=== PATIENT | female | born 1960 | race Caucasian/White ===

== ENCOUNTER → 2023-09-26 10:27 | Outpatient (REF) | payer MEDICARE, SELFPAY | LOC: WDC 10:27 | PROVIDERS: ATTENDING PHYSICIAN Obstetrics & Gynecology | DX: Z12.31 Encounter for screening mammogram for malignant neoplasm of breast (principal) | CPT/HCPCS: 77063; 77067 ==

== ENCOUNTER → 2024-10-01 08:45 | Outpatient (REF) | payer MEDICARE, SELFPAY | LOC: WDC 08:45 | PROVIDERS: ATTENDING PHYSICIAN Obstetrics & Gynecology | DX: Z12.31 Encounter for screening mammogram for malignant neoplasm of breast (principal) | CPT/HCPCS: 77063; 77067 ==